=== PATIENT | male | born 1980 | race Caucasian/White ===

== ENCOUNTER 2018-07-12 20:35 | Emergency (ER) | payer BC, MEDICAID, OTHER ==
[~2018-07-12] VITALS: Ht 195.6 cm; Wt 113.6 kg
[~2018-07-12 20:35] MED LIST: DIAZ5TAB PO; OXYC-145 PO
[2018-07-12] MEDS ORDERED: HYDROcodone/acetaminophen 10/325mg tab PO STA (21:17)
[2018-07-12] MEDS ORDERED: BUPIVAcaine/PF 2.5 mg/ml (0.25%) 30ml vial IJ ONE (22:20)
[2018-07-12] MEDS ORDERED: CLIN150C2 PO (22:20)
== END 2018-07-12 22:38 | disposition home or self-care (01) ==
LOC: ER 20:36
DX: K02.9 Dental caries, unspecified (principal); K21.9 Gastro-esophageal reflux disease without esophagitis; Z79.2 Long term (current) use of antibiotics; Z79.899 Other long term (current) drug therapy
CPT/HCPCS: 64400; 99284; J3490

== ENCOUNTER 2021-02-15 10:42 | Emergency (ER) | payer BC, MEDICAID, OTHER ==
[~2021-02-15] VITALS: Ht 195.6 cm; Wt 118.2 kg
[2021-02-15] MEDS ORDERED: aspirin 81mg tab.chew PO ONE (10:50)
[2021-02-15 11:04] LABS: BASOPHILS % (AUTO) 0.4 % (0-1); EOSINOPHILS # (AUTO) 0.2 X10'3 (0-0.9); EOSINOPHILS % (AUTO) 2.8 % (0-6); HEMATOCRIT 45.2 % (42.0-52.0); HEMOGLOBIN 15.9 g/dl (14.0-17.9); LYMPHOCYTES # (AUTO) 2.3 X10'3 (1.1-4.8); LYMPHOCYTES % (AUTO) 28.6 % (21-51); MEAN CORPUSCULAR HEMOGLOBIN 30.6 PG (27.0-31.0); MEAN CORPUSCULAR HGB CONC 35.1 g/dL (33.0-36.5); MEAN CORPUSCULAR VOLUME 87.2 FL (78-98); MEAN PLATELET VOLUME 8.7 FL (7.4-10.4); MONOCYTES # (AUTO) 0.7 X10'3 (0-0.9); MONOCYTES % (AUTO) 8.9 % (2-12); NEUTROPHILS # (AUTO) 4.8 X10'3 (1.8-7.7); NEUTROPHILS % (AUTO) 59.3 % (42-75); PLATELET COUNT 218 X10'3 (140-440); RED BLOOD COUNT 5.19 X10'6 (4.70-6.10); RED CELL DISTRIBUTION WIDTH 12.9 % (11.5-14.5); WHITE BLOOD COUNT 8.1 X10'3 (4.5-11.0)
[2021-02-15 11:21] LABS: ALANINE AMINOTRANSFERASE 45 U/L (12-78); ALBUMIN 3.9 G/DL (3.4-5.0); ALBUMIN/GLOBULIN RATIO 1.1 (1.1-1.5); ALKALINE PHOSPHATASE 82 IU/L (46-116); ANION GAP 6 (8-16); ASPARTATE AMINO TRANSFERASE 20 U/L (10-37); BILIRUBIN,TOTAL 0.4 MG/DL (0.1-1.0); BLOOD UREA NITROGEN 15 MG/DL (7-18); BUN/CREATININE RATIO 15.5 (5.4-32.0); CALCIUM 8.7 MG/DL (8.5-10.1); CHLORIDE 105 MMOL/L (99-107); CREATININE 0.97 MG/DL (0.60-1.10); GLUCOSE 92 MG/DL (70-104); POTASSIUM 3.9 MMOL/L (3.5-5.1); SODIUM 139 MMOL/L (135-145); TOTAL CARBON DIOXIDE 28.3 MMOL/L (24-32); TOTAL PROTEIN 7.5 G/DL (6.4-8.2); eGFR 87 ML/MIN
[2021-02-15 13:04] VITALS: BP 124/71
== END 2021-02-15 13:05 | disposition home or self-care (01) ==
LOC: ER 10:43
DX: R07.9 Chest pain, unspecified (principal); K21.9 Gastro-esophageal reflux disease without esophagitis
CPT/HCPCS: 36415; 71045; 80053; 83880; 84484; 85025; 93005; 99285

== ENCOUNTER 2024-10-14 19:05 | Emergency (ER) | payer OTHER ==
[~2024-10-14] VITALS: Ht 193 cm; Wt 126.2 kg
[2024-10-14 19:22] VITALS: BP 159/115; PULSE 101; TEMP 99.1; O2SAT 96
[2024-10-14 19:34] VITALS: RESP 16
[2024-10-14] MEDS: ketorolac trometh 30MG/ML vial 30 MG/ML VIAL IM ONE (19:34)
[2024-10-14] MEDS: ondansetron 4mg rapidly disintigrating tab PO ONE (20:26)
[2024-10-14] MEDS: morphine 4 MG/ML inj SYRINge IM ONE (20:27)
--- NOTE | 2024-10-14 20:30 | Physician Documentation ---
History of Present Illness ~ Chief Complaint: Back Pain Stated Complaint: BACK PAIN Time Seen by MD: 20:01 Primary Medical Doctor: none HPI 43-year-old male who has a history of back injuries including a herniated disc presents today for after injuring himself 4 days ago when he was bending over to grab something in his garage he felt a pull in his lumbar region. States he thought he was getting better until he went out to the pool yesterday and now and he can hardly hold him self up erect Pain denies any red flag symptoms including numbness tingling urinary incontinence or saddle anesthesia Medication Reconciliation Allergies: Coded Allergies: No Known Allergies (Unverified , 10/14/24) Scheduled Cyclobenzaprine HCl (Cyclobenzaprine HCl), 1 TAB PO Q8H Diazepam (Valium), 1 TABLET PO HS Naproxen (Naproxen), 1 TAB PO Q12H Oxycodone HCl/Acetaminophen (Percocet 5-325 mg Tablet), 1 TABLET PO TID Past Medical History Past Medical History: GERD Past Surgical History: noncontributory Alcohol Use: Occasionally Drug Use: none Lives with: Spouse, S/O Lives In: Home Occupation: employed Review of Systems All Other Systems at this time: Reviewed and Negative ROS As stated above in the HPI, otherwise all systems are reviewed and negative. Physical Exam Physical Exam Vital Signs: Temperature: 99.1, Source: Temporal, Heart Rate: 101, Respiratory Rate: 16, BP: 159/115, Pulse Oximetry: 96, Weight: 126.200 Oxygen Flow Rate: 0 Physical Exam General: Alert, no apparent distress. Back: Tender to the lumbar region on the left side via palpation Neurologic: Oriented x4. Psychiatric: Normal mood and affect. Skin: Normal color, warm and dry. No edema, no ecchymosis. Progress Results/Orders Results/Orders Completed Orders - JUSTUS SILVA NP Morphine 4mg/Ml Inj. (Morphine Inj.) (10/14/24 20:15) Ondansetron Disint. Tablet (Zofran Odt T (10/14/24 20:15) Diazepam Tablet (Valium Tablet) (10/14/24 20:15) Medications Received in ER Medications (Trade) Dose Ordered Sig/Deonte Route PRN Reason Start Time Stop Time Status Last Admin Dose Admin (Toradol inj. 30mg/ml) 30 mg ONCE ONCE IM 10/14/24 19:30 10/14/24 19:31 DC 10/14/24 19:34 30 MG (Zofran ODT tablet) 4 mg ONCE ONCE PO 10/14/24 20:15 10/14/24 20:17 DC 10/14/24 20:26 4 MG (Valium tablet) 10 mg ONCE ONCE PO 10/14/24 20:15 10/14/24 20:17 DC 10/14/24 20:26 10 MG Vital Signs 10/14/24 10/14/24 19:22 19:34 Temp 99.1 Pulse 101 Resp 16 16 B/P (MAP) 159/115 Pulse Ox 96 O2 Flow Rate 0 Medical Decision Making Findings Discussed with this patient that often these injuries take quite some time to heal. It sounds as though his previous injury requiring extensive physical therapy prepped him for the likelihood of this occurring again and requiring ongoing treatment to fully resolve his symptoms. Has not follow up with [facility] in order to obtain appropriate referral Differential Dx:Considerations: Include: AAA, Aortic dissection, Appendicitis, Bowel obstruction, Cholelithiasis, Cholangitis, DJD, Fracture, Hepatitis, HNP, Musculoskeletal pain, Pancreatitis, Pyelonephritis, Renal infarction, Strain, Urinary obstruction, Urolithiasis, Urinary tract infection, Other Departure Disposition: 01 HOME / SELF CARE / HOMELESS Impression: Primary Impression: Low back pain Additional Impression: Strain of lumbar region Condition: Stable Discharge Instructions: Lumbosacral Strain Additional Instructions: As discussed the recommend that she follow up with [facility] in order for MRI and a referral to go to physical therapy in the outpatient setting from them Referrals: NO PRIMARY CARE PROVIDER (PCP) Prescriptions Cyclobenzaprine HCl (Cyclobenzaprine HCl) 10 Mg Tablet 1 TAB PO Q8H for muscle spasms for 10 Days, #30 TAB Prov: JUSTUS SILVA WIG DRESSER 10/14/24 Naproxen (Naproxen) 500 Mg Tablet 1 TAB PO Q12H, #20 TAB Prov: JUSTUS SILVA WIG DRESSER 10/14/24 Education Educated: Patient Educated regarding: diagnosis Signature Scribe Signature: Attestation: Scribed for Justus Silva Telegraphic Typewriter Operator Chief by Justus Kinney NP . 10/14/24 22:56 JUSTUS SILVA WIG DRESSER Oct 14, 2024 20:30
[2024-10-14] MEDS ORDERED: CYCL-394 PO (20:32)
[2024-10-14] MEDS ORDERED: NAPR-56 PO (20:32)
--- NOTE | 2024-10-14 21:01 | RADIOLOGY REPORT ---
CLINICAL INDICATION: BACK PAIN TECHNIQUE: DI SACRUM COCCYX Comparison: None FINDINGS/IMPRESSION: : There is no evidence of acute fracture or dislocation. Soft tissues are unremarkable.
--- NOTE | 2024-10-14 21:02 | RADIOLOGY REPORT ---
INDICATION: BACK PAIN COMPARISON: None TECHNIQUE: 3 views of the lumbar spine were obtained. FINDINGS: Loss of normal lumbar lordosis. The lumbar vertebral alignment is normal. Moderate L4-L5 and L5-S1 disc height loss with adjacent endplate sclerosis. The intervertebral disc s paces are otherwise well-maintained. No significant facet arthropathy is noted. No acute fracture, vertebral compression deformity or aggressive osseous lesions. The paravertebral soft tissues are grossly unremarkable. IMPRESSION: 1. No acute fracture. 2. Degenerative changes at the L4-L5 and L5-S1 levels.
== END 2024-10-14 20:51 | disposition home or self-care (01) ==
LOC: ER 19:06
DX: S39.012A Strain of muscle, fascia and tendon of lower back, initial encounter (principal); K21.9 Gastro-esophageal reflux disease without esophagitis; Z72.89 Other problems related to lifestyle; Z79.899 Other long term (current) drug therapy; X58.XXXA Exposure to other specified factors, initial encounter; Y93.89 Activity, other specified; Y92.89 Other specified places as the place of occurrence of the external cause; Y99.8 Other external cause status
CPT/HCPCS: 72100; 72220; 96372; 99284; J1885